=== PATIENT | female | born 1965 | race Caucasian/White ===

== ENCOUNTER 2020-08-09 17:47 | Emergency (ER) | payer OTHER ==
[2020-08-09 19:41] LABS: HEMOGLOBIN 14.4 gm/dl (12.3-15.3); RED BLOOD COUNT 4.77 M/UL (4.00-5.10); WHITE BLOOD COUNT 13.6 K/UL (4.5-11.0)
[2020-08-09 20:03] LABS: BUN/CREATININE RATIO 27 (0-10)
[2020-08-09] MEDS ORDERED: ZOFRAN4 MG PO (20:28)
== END 2020-08-09 20:43 | disposition home or self-care (01) ==
LOC: ER1 17:47
PROVIDERS: Physician Assistant
DX: R42 Dizziness and giddiness (principal); R51.9 Headache, unspecified; M54.9 Dorsalgia, unspecified; G89.29 Other chronic pain; Z79.891 Long term (current) use of opiate analgesic; Z88.2 Allergy status to sulfonamides
CPT/HCPCS: 70450; 80048; 81001; 84439; 84443; 85025; 87086; 96372; 99284; J1885